=== PATIENT | male | born 1995 | race African-American/Black ===

== ENCOUNTER 2022-08-15 14:51 | Observation (INO) | payer BC, SELFPAY ==
--- NOTE | ~2022-08-15 | US_ITS ---
EXAMINATION: US renal BI DATE: 08/16/2022 11:55 INDICATION: Acute renal failure TECHNIQUE: Multiple grayscale and Doppler ultrasound images of the kidneys were obtained. COMPARISON: None. FINDINGS: The right kidney measures 9.9 x 5.8 x 4.4 cm. The left kidney measures 10.2 x 4.9 x 4.8 cm. The kidneys demonstrate normal parenchymal echogenicity. There is no hydronephrosis. The bladder is normal. IMPRESSION: 1. Normal kidneys without hydronephrosis. Reviewed, dictated and finalized at location [facility]PRENTICE
[2022-08-15 15:16] VITALS: BP 153/80; PULSE 107; RESP 20; TEMP 36.2; O2SAT 99
[2022-08-15 15:27] LABS: Glucose Point of Care > 500 mg/dl (65-105)
[2022-08-15 15:54] LABS: Basophils Percent Auto 0.5 % (0.2-1.2); Eosinophils Absolute Auto 0.1 K/mm3 (0-0.3); Eosinophils Percent Auto 1.7 % (0-4.4); Hematocrit 41.5 % (42.0-52.0); Hemoglobin 14.1 g/dL (14.0-18.0); Immature Granulocyte Absolute 0.11 K/mm3 (0.00-0.031); Immature Granulocyte Percent A 1.9 % (0-0.5); Lymphocytes Absolute Auto 1.63 K/mm3 (0.9-3.2); Lymphocytes Percent Auto 27.9 % (18.3-44.2); Mean Corpuscular Hemoglobin 29.1 pg (26-34); Mean Corpuscular Volume 85.7 fl (80-100); Monocytes Absolute Auto 0.8 K/mm3 (0.1-0.6); Monocytes Percent Auto 13.3 % (2.6-8.5); Neutrophils Absolute Auto 3.2 K/mm3 (1.3-6.7); Neutrophils Percent Auto 54.7 % (45.5-73.1); Platelet Count Result 166 k/mm3 (150-375); Red Blood Count 4.84 M/mm3 (4.6-6.20); Red Cell Distribution Width 12.9 % (11.5-14.5); White Blood Count 5.9 K/mm3 (4.5-10.0)
[2022-08-15 16:08] LABS: Beta-Hydroxybutyrate/Acetoacetate 0.11 mmol/L (0.02-0.27)
[2022-08-15 16:12] LABS: Appearance Urine Clear (Clear); Bilirubin Urine Negative (Negative); Blood Urine Trace-lysed (Negative); Color Urine Light Yellow (Yellow); Glucose Urine UA 3+ mg/dL (Negative); Ketones Urine Negative (Negative); Leukocyte Esterase Ur Negative LEU/UL (Negative); Nitrate Urine Negative (Negative); Protein Urine Negative (Negative); Specific Grav Ur <= 1.005 (1.001-1.035); Urobilinogen Urine 0.2 mg/dL (<2.0); pH Urine 6.5 (5.0-9.0)
[2022-08-15 16:16] LABS: Bacteria Urine Trace /hpf; RBC Urine 0-2 /hpf (0-2); WBC Urine 0-3 /hpf
[2022-08-15 16:17] LABS: Add Urine Microscopic? YES
[2022-08-15 16:22] LABS: Alanine Aminotransferase 26 U/L (6-50); Albumin Level 4.5 g/dL (3.5-5.1); Alkaline Phosphatase 159 U/L (38-126); Anion Gap 12 mmol/L (8-16); Aspartate Amino Transferase 26 U/L (17-59); Bilirubin,Total 0.5 mg/dL (0.2-1.3); Blood Urea Nitrogen 19 mg/dL (9-20); Calcium 9.3 mg/dL (8.4-10.2); Carbon Dioxide 22 mmol/L (22-30); Chloride 92 mmol/L (98-107); Estimated CRCL calculation 66 ml/min; Estimated Glomerular Filt Rate 49; Phosphorus 3.8 mg/dL (2.5-4.5); Potassium 4.5 mmol/L (3.4-5.0); Sodium 126 mmol/L (137-145)
[2022-08-15 16:39] LABS: Glucose 789 mg/dL (65-110)
[2022-08-15] MEDS: LORazepam INJ (*CRX) 2 MG/ML VIAL 0.5 MG IV PUSH (17:37)
[2022-08-15] MEDS: SODIUM CHLORIDE 0.9% IV 1,000 ML 999 ML IV CONT ×2 (17:38→19:02)
--- NOTE | 2022-08-15 17:40 | ED.GENADULT ---
HPI - General Adult General Chief complaint: Recheck/Abnormal Lab/Rx Stated complaint: high bs Time Seen by Provider: 08/15/22 16:37 History of Present Illness HPI narrative: Patient is a 27-year-old male who presents ER due to outpatient lab work that was abnormal. He was told that he had a critically elevated blood glucose as well as elevated cholesterol levels and an elevated creatinine. Patient reports he had increased thirst and water intake over the last couple months. Patient had been in a mental institution since he was 15 years old and was recently released last months. Last week his father's and this is caused him a lot of stress and anxiety. Denies fevers chills or sweats. No chest pain or chest pressure. No additional concerns. Review of Systems Review of Systems: All systems reviewed & are unremarkable except as noted in HPI and below Constitutional: Constitutional: Denies chills, Denies fatigue and Denies fever(s) ENT: Denies nasal congestion and Denies sore throat Cardiovascular: Cardiovascular: Denies chest pain and Denies rapid heart rate Respiratory: Respiratory: Denies cough, Denies dyspnea and Denies wheezing Gastrointestinal: Gastrointestinal: Denies abdominal pain, Denies nausea and Denies vomiting Endocrine: Endocrine: Denies excessive sweating, Denies fatigue, Reports polydipsia and Reports polyuria PMFSH Past Medical History Medical History (Updated 08/15/22 @ 21:47 by Vern Montano MD) ADHD Bipolar disorder Cerebral palsy Cognitive developmental delay Diabetes Intermittent explosive disorder Surgical History Surgical History (Updated 08/15/22 @ 19:08 by Breonna Jacobs NP) History of hand surgery Status post surgery of both feet [place] teeth extracted Family History Family History (Updated 08/15/22 @ 19:02 by Breonna Jacobs NP) Mother Diabetes mellitus Father Drug addiction Social History Social History (Updated 08/15/22 @ 19:04 by Breonna Jacobs NP) Social History: lives with biological aunt, mother, sister in law, and cat. Disabled code status : full code Smoking status: Never smoker Exam Narrative: GENERAL: Well-appearing, well-nourished, and in no acute distress. HEAD: Normocephalic, atraumatic. EYES: PERRL and EOMI. ENT: Mucous membranes moist. CHEST: Clear to auscultation. No respiratory distress. HEART: Regular rate and rhythm. Normal peripheral pulses. ABDOMEN: Soft, nontender, nondistended. EXTREMITIES: Normal range of motion. No edema. SKIN: Warm, dry, no rash. NEURO: Alert and oriented x3. PSYCH: Normal mood and affect. Course Course Emergency Course: Patient be admitted to hospitalist service for hyperglycemia and management of new diabetes. Patient anxiety treated with Ativan. He is nervous for being in the hospital given recent in the family. He is aware of the diagnosis and treatment plan as is his mother. He has been accepted by the hospitalist service and he will be started on a lower dose of Lantus since he is insulin na?ve. Vital Signs Vital signs: Vital Signs Temperature 97.2 F L 08/15/22 15:16 Pulse Rate 107 H 08/15/22 15:16 Respiratory Rate 08/15/22 15:16 Blood Pressure 153/80 H 08/15/22 15:16 Pulse Oximetry 99 08/15/22 15:16 Oxygen Delivery Room Air 08/15/22 15:16 Temperature 97.2 F L 08/15/22 15:16 Pulse Rate 107 H 08/15/22 15:16 Respiratory Rate 08/15/22 15:16 Blood Pressure 153/80 H 08/15/22 15:16 Pulse Oximetry 99 08/15/22 15:16 Oxygen Delivery Room Air 08/15/22 15:16 Medical Decision Making Vital Signs Vital Signs: Vital Signs Temperature 97.2 F L 08/15/22 15:16 Pulse Rate 107 H 08/15/22 15:16 Respiratory Rate 08/15/22 15:16 Blood Pressure 153/80 H 08/15/22 15:16 Pulse Oximetry 99 08/15/22 15:16 Oxygen Delivery Room Air 08/15/22 15:16 Temperature 97.2 F L 08/15/22 15:16 Pulse Rate 107 H 08/15/22 15:16 Respir
[2022-08-15 17:50] LABS: Glucose Point of Care > 500 mg/dl (65-105)
[2022-08-15 18:53] LABS: Glucose Point of Care > 500 mg/dl (65-105)
--- NOTE | 2022-08-15 18:55 | PM.IMHP ---
H&P: HPI History of Present Illness Date/Time: 08/15/22 18:55 Chief Complaint: Abnormal labs Narrative: This is a 27-year-old male patient who recently was discharged from a mental institution. The patient had been there for at least 12 years. The patient was told that he has a critically elevated blood glucose and elevated cholesterol levels and elevated creatinine. The patient is very dry his lips are dry and he is requesting water. The patient had increased thirst and water intake or last couple months. Last week his uncle who raised him any called dad recently and the patient has been having a lot of stress and anxiety. He denies any fever chills. His sodium is 126, chloride 92 creatinine 1.7. His initial blood glucose was 789 and is now 141. The patient was given Ativan, 2 L of IV fluid, Lantus, NovoLog and regular insulin in the emergency room. He was negative for influenza A/B and COVID. The patient is being admitted to observation status on the date of service of 08/15/2022 Review of Systems Review of Systems: See HPI All systems reviewed & are unremarkable except as noted in HPI and below Constitutional: Constitutional: Reports as per HPI and Reports no additional constitutional complaints Eyes: Eyes: Reports as per HPI and Reports no additional eye complaints ENT: Reports system reviewed and no additional complaints, except as documented and Reports Normal hearing present Cardiovascular: Cardiovascular: Reports no additional cardiovascular complaints Respiratory: Respiratory: Reports no additional respiratory complaints and Reports no additional respiratory complaints Gastrointestinal: Gastrointestinal: Reports as per HPI and Reports no additional gastrointestinal complaints Musculoskeletal: Musculoskeletal: Reports no additional musculoskeletal complaints Integumentary/Breasts: Skin/Breast: Reports system reviewed and no additional complaints, except as docu and Reports as per HPI Neurologic: Reports system reviewed and no additional complaints, except as documented, Reports as per HPI and Reports Normal hearing present Psychiatric: Psychiatric: Reports no additional psychiatric complaints and Reports as per HPI Endocrine: Endocrine: Reports no additional endocrine complaints Hematologic/Lymphatic: Hematologic/Lymphatic: Reports no additional hematologic/lymphatic complaints Allergic/Immunologic: Allergic/Immunologic: Reports no additional allergic/immunologic complaints [facility] Past Medical History Medical History (Updated 08/16/22 @ 01:10 by Breonna Jacobs NP) ADHD Bipolar disorder Cerebral palsy Cognitive developmental delay Diabetes Hypertension Intermittent explosive disorder Surgical History Surgical History History of hand surgery Status post surgery of both feet [place] teeth extracted Family History Family History Mother Diabetes mellitus Father Drug addiction Social History Social History (Updated 08/16/22 @ 01:00 by Breonna Jacobs NP) Social History: He lives with biological aunt, biologic mother, sister in law, and a [place] cat. He is Disabled. He is single and has no children. code status : full code Smoking status: Never smoker Alcohol intake: never Substance use: never Substance use type: does not use Lack of Transportation: No Lack of Food: Never True Current Housing: I Have Housing Concerned About Future Housing: No Difficulty Paying Gas/Electric Bills: No Difficulty Paying for Meds: No Currently Unemployed: No Education: High School Diploma/GED Difficulty w/ Childcare or Family Care: No Spiritual care concerns: No Meds Home Medications and Allergies Home Medications Medication Instructions Recorded Confirmed Type benztropine 1 mg tablet 1 mg PO BID 08/15/22 08/15/22 History chlorpromazine 100 mg ta
[2022-08-15] MEDS: INSULIN GLARGINE (*BKC) 100 UNITS/ML 10 UNITS SUB-Q (19:00)
[2022-08-15] MEDS: INSULIN HUMAN REGULAR (*BKC) 100 UNITS/ML 10 UNITS SUB-Q (19:00)
[2022-08-15 19:04] LABS: Influenza A QL RT-PCR Negative (Negative); Influenza B QL RT-PCR Negative (Negative); SARS-CoV-2 RNA PCR Negative
[2022-08-15 20:03] LABS: Glucose Point of Care 469 mg/dl (65-105)
[2022-08-15 22:09] LABS: Glucose Point of Care 359 mg/dl (65-105)
[2022-08-15] MEDS: INSULIN HUMAN REGULAR (*BKC) 100 UNITS/ML IV PUSH (22:10)
[2022-08-15 22:30] VITALS: PULSE 78
--- NOTE | 2022-08-15 22:30 | ADMGEN ---
This patient, Dov Ludwig, was admitted to IMU Room 210-01. Patient/family oriented to hospital policies and general routines including ID bracelet, bed and alarms, visiting hours, pain management, procedures, bathroom and other care routines, personal items, smoking policy, room service/diet, and visiting hours. Information on how to activate the Rapid Response Team has been discussed. Patient/Family are encouraged to report perceived risks to care and to ask questions if they do not understand what they are told or what they should do.
[2022-08-15 22:56] VITALS: BP 132/87; PULSE 81; RESP 20; TEMP 36.4; O2SAT 99
[2022-08-15 23:43] LABS: Glucose Point of Care 141 mg/dl (65-105)
[2022-08-16] VITALS (18 sets, daily range): BP systolic 118–138; BP diastolic 63–86; PULSE 59–93; RESP 18–20; TEMP 35.7–36.7; O2SAT 99–100; BMI 29.7
[2022-08-16] MEDS: DIVALPROEX SODIUM ER 500 MG TAB.24H 2500 MG PO ×2 (02:00→20:54)
[2022-08-16] MEDS: DESMOPRESSIN ACETATE 0.1 MG TABLET 0.6 MG PO ×2 (02:01→20:53)
[2022-08-16] MEDS: hydrOXYzine HCL 25 MG TABLET PO ×4 (02:02→16:32)
[2022-08-16] MEDS: GABAPENTIN 100 MG CAPSULE PO ×4 (02:03→16:32)
[2022-08-16] MEDS: levETIRAcetam 500 MG TABLET 1000 MG PO ×4 (02:03→16:28)
[2022-08-16] MEDS: FAMOTIDINE 20 MG TABLET PO ×2 (02:03→20:53)
[2022-08-16] MEDS: BENZTROPINE MESYLATE 1 MG TABLET PO ×3 (02:04→16:33)
[2022-08-16] MEDS: chlorproMAZINE HCL 25 MG TABLET 100 MG PO ×4 (02:04→16:29)
[2022-08-16] MEDS: CITALOPRAM HYDROBROMIDE 20 MG TABLET PO ×3 (02:04→16:31)
[2022-08-16] MEDS: traZODone HCL 50 MG TABLET PO ×2 (02:06→20:53)
[2022-08-16 05:25] LABS: Basophils Percent Auto 0.5 % (0.2-1.2); Eosinophils Absolute Auto 0.1 K/mm3 (0-0.3); Eosinophils Percent Auto 2.1 % (0-4.4); Hematocrit 39.3 % (42.0-52.0); Hemoglobin 13.5 g/dL (14.0-18.0); Immature Granulocyte Absolute 0.14 K/mm3 (0.00-0.031); Immature Granulocyte Percent A 2.1 % (0-0.5); Lymphocytes Absolute Auto 2.22 K/mm3 (0.9-3.2); Lymphocytes Percent Auto 33.6 % (18.3-44.2); Mean Corpuscular HGB Conc 34.4 g/dl (32-36); Mean Corpuscular Hemoglobin 29.2 pg (26-34); Mean Corpuscular Volume 84.9 fl (80-100); Mean Platelet Volume 10.8 fl (7.4-10.4); Monocytes Absolute Auto 1.1 K/mm3 (0.1-0.6); Monocytes Percent Auto 16.1 % (2.6-8.5); Neutrophils Percent Auto 45.6 % (45.5-73.1); Platelet Count Result 169 k/mm3 (150-375); Red Blood Count 4.63 M/mm3 (4.6-6.20); Red Cell Distribution Width 13.1 % (11.5-14.5); White Blood Count 6.6 K/mm3 (4.5-10.0)
[2022-08-16 05:40] LABS: Anion Gap 8 mmol/L (8-16); Blood Urea Nitrogen 18 mg/dL (9-20); Calcium 9.1 mg/dL (8.4-10.2); Carbon Dioxide 27 mmol/L (22-30); Chloride 104 mmol/L (98-107); Estimated CRCL calculation 80 ml/min; Estimated Glomerular Filt Rate > 60; Glucose 204 mg/dL (65-110); Potassium 3.6 mmol/L (3.4-5.0); Sodium 139 mmol/L (137-145)
[2022-08-16] MEDS: INSULIN ASPART (*BKC) 100 UNITS/ML SUB-Q ×4 (06:10→23:55)
[2022-08-16 07:27] LABS: Hemoglobin A1C 12.9 % (<5.7)
[2022-08-16] MEDS: polyethylene glycoL 3350 17 GM POWD.PACK PO (09:03)
[2022-08-16] MEDS: cloNIDine HCL 0.2 MG TABLET PO ×2 (09:04→16:30)
[2022-08-16] MEDS: ENOXAPARIN 40 MG/0.4 ML SYRINGE SUB-Q (09:04)
[2022-08-16] MEDS: metFORMIN HCL XR 500 MG TAB.SR.24H PO (10:20)
[2022-08-16] MEDS: glipiZIDE 5 MG TABLET PO (10:20)
[2022-08-16 12:16] LABS: Glucose Point of Care 257 mg/dl (65-105)
--- NOTE | 2022-08-16 14:48 | PM.IMPN ---
Progress Note: A&P Assessment and Plan (1) Hyperglycemia due to type 2 diabetes mellitus: Code(s): E11.65 - Type 2 diabetes mellitus with hyperglycemia Status: Acute Assessment and Plan: -check A1c -the patient was given a dose of regular insulin in the emergency room grassroots organizer -dietitian I was not able to start him on metformin today due to his acute renal failure. 08/16/2022 interval history: patient with mental illness was in the [facility] 12 years just returned home and found to have new onset DM most likely type II, his A1c is 12.9, upon arrival patient was hyperglycemic but not in DKA, his LELE most likely due to dehydration as patient kidney function is improving, will hydration, I have started patient on metformin and Glucotrol, patient with history of mental illness not a candidate for insulin, will have frog shaker and nailer machine consult the patient, patient mother and whole family has DM II, will continue to monitor. (2) Creatinine elevation: Code(s): R79.89 - Other specified abnormal findings of blood chemistry Status: Acute Assessment and Plan: We will recheck his creatinine in the a.m.. May consider starting metformin if his creatinine comes down to normal. Renal ultrasound (3) Bipolar disorder: Code(s): F31.9 - Bipolar disorder, unspecified Status: Acute Assessment and Plan: Continue with Celexa (4) Cerebral palsy: Code(s): G80.9 - Cerebral palsy, unspecified Status: Acute Assessment and Plan: The patient has some mental development delay legs. (5) Cognitive developmental delay: Code(s): F81.9 - Developmental disorder of scholastic skills, unspecified Status: Acute Assessment and Plan: The patient had been in a mental in-situ it for approximately 12 years. (6) Intermittent explosive disorder: Code(s): F63.81 - Intermittent explosive disorder Status: Acute Assessment and Plan: Continue with Cogentin, chlorpromazine, Celexa, divalproex sodium, and trazodone. (7) Hypertension: Code(s): I10 - Essential (primary) hypertension Status: Acute Assessment and Plan: Continue with Catapres Subjective Date/time seen: 08/16/22 14:48 Abnormal labs HPI-Narrative: This is a 27-year-old male patient who recently was discharged from a mental institution.? The patient had been there for at least 12 years.? The patient was told that he has a critically elevated blood glucose and elevated cholesterol levels and elevated creatinine.? The patient is very dry his lips are dry and he is requesting water.? The patient had increased thirst and water intake or last couple months.? Last week his uncle who raised him any called dad recently and the patient has been having a lot of stress and anxiety.? He denies any fever chills.? His sodium is 126, chloride 92 creatinine 1.7.? His initial blood glucose was 789 and is now 141.? The patient was given Ativan, 2 L of IV fluid, Lantus, NovoLog and regular insulin in the emergency room.? He was negative for influenza A/B and COVID.? The patient is being admitted to observation status on the date of service of 08/15/2022 08/16/2022 interval history: patient with mental illness was in [facility] years just returned home and found to have new onset DM most likely type II, his A1c is 12.9, upon arrival patient was hyperglycemic but not in DKA, his LELE most likely due to dehydration as patient kidney function is improving, will hydration, I have started patient on metformin and Glucotrol, patient with history of mental illness not a candidate for insulin, will have frog shaker and nailer machine consult the patient, patient mother and whole family has DM II, will continue to monitor. Review of Systems Review of Systems: All systems reviewed & are unremarkable except as noted in HPI and below Objective Data Vital Signs
[2022-08-16 16:35] LABS: Glucose Point of Care 249 mg/dl (65-105)
--- NOTE | 2022-08-16 17:18 | PC.NURSE ---
1600 agree with assessments and documentation of student nurse Hoda Richards from [facility]
[2022-08-16 23:30] LABS: Glucose Point of Care 290 mg/dl (65-105)
[2022-08-17] VITALS (10 sets, daily range): BP systolic 118–139; BP diastolic 63–87; PULSE 63–87; RESP 16–20; TEMP 36.5–36.6; O2SAT 99–100
[2022-08-17 05:04] LABS: Hematocrit 40.8 % (42.0-52.0); Hemoglobin 13.9 g/dL (14.0-18.0); Mean Corpuscular HGB Conc 34.1 g/dl (32-36); Mean Corpuscular Hemoglobin 29.3 pg (26-34); Mean Corpuscular Volume 85.9 fl (80-100); Mean Platelet Volume 11.1 fl (7.4-10.4); Platelet Count Result 168 k/mm3 (150-375); Red Blood Count 4.75 M/mm3 (4.6-6.20); Red Cell Distribution Width 13.1 % (11.5-14.5); White Blood Count 5.9 K/mm3 (4.5-10.0)
[2022-08-17 05:17] LABS: Albumin Level 4.1 g/dL (3.5-5.1); Anion Gap 3 mmol/L (8-16); Blood Urea Nitrogen 13 mg/dL (9-20); Calcium 9.5 mg/dL (8.4-10.2); Carbon Dioxide 31 mmol/L (22-30); Chloride 104 mmol/L (98-107); Estimated CRCL calculation 80 ml/min; Estimated Glomerular Filt Rate > 60; Glucose 172 mg/dL (65-110); Magnesium 1.8 mg/dL (1.6-2.3); Phosphorus 3.3 mg/dL (2.5-4.5); Potassium 3.8 mmol/L (3.4-5.0); Sodium 138 mmol/L (137-145)
[2022-08-17] MEDS: glipiZIDE 5 MG TABLET PO (06:17)
[2022-08-17] MEDS: chlorproMAZINE HCL 25 MG TABLET 100 MG PO (08:10)
[2022-08-17] MEDS: metFORMIN HCL XR 500 MG TAB.SR.24H PO (08:10)
[2022-08-17] MEDS: levETIRAcetam 500 MG TABLET 1000 MG PO (08:11)
[2022-08-17] MEDS: GABAPENTIN 100 MG CAPSULE PO (08:11)
[2022-08-17] MEDS: CITALOPRAM HYDROBROMIDE 20 MG TABLET PO (08:11)
[2022-08-17] MEDS: cloNIDine HCL 0.2 MG TABLET PO (08:11)
[2022-08-17] MEDS: hydrOXYzine HCL 25 MG TABLET PO (08:12)
[2022-08-17] MEDS: ENOXAPARIN 40 MG/0.4 ML SYRINGE SUB-Q (08:13)
[2022-08-17] MEDS: polyethylene glycoL 3350 17 GM POWD.PACK PO (08:13)
[2022-08-17] MEDS: BENZTROPINE MESYLATE 1 MG TABLET PO (08:14)
--- NOTE | 2022-08-17 12:17 | PM.DS ---
DS: Admitting Diagnosis Discharge Date 08/17/2022 Admitting Diagnosis Abnormal labs DS: Discharge Diagnosis Discharge Diagnosis (1) Hyperglycemia due to type 2 diabetes mellitus: Code(s): E11.65 - Type 2 diabetes mellitus with hyperglycemia Status: Acute Assessment and Plan: -check A1c -the patient was given a dose of regular insulin in the emergency room senior health educator -dietitian I was not able to start him on metformin today due to his acute renal failure. 08/16/2022 interval history: patient with mental illness was in the hospital for behavioral medicine for 12 years just returned home and found to have new onset DM most likely type II, his A1c is 12.9, upon arrival patient was hyperglycemic but not in DKA, his LELE most likely due to dehydration as patient kidney function is improving, will hydration, I have started patient on metformin and Glucotrol, patient with history of mental illness not a candidate for insulin, will have hand roller engraver and tobacco prevention health educator consult the patient, patient mother and whole family has DM II, will continue to monitor. (2) Creatinine elevation: Code(s): R79.89 - Other specified abnormal findings of blood chemistry Status: Acute Assessment and Plan: We will recheck his creatinine in the a.m.. May consider starting metformin if his creatinine comes down to normal. Renal ultrasound (3) Bipolar disorder: Code(s): F31.9 - Bipolar disorder, unspecified Status: Acute Assessment and Plan: Continue with Celexa (4) Cerebral palsy: Code(s): G80.9 - Cerebral palsy, unspecified Status: Acute Assessment and Plan: The patient has some mental development delay legs. (5) Cognitive developmental delay: Code(s): F81.9 - Developmental disorder of scholastic skills, unspecified Status: Acute Assessment and Plan: The patient had been in a mental in-situ it for approximately 12 years. (6) Intermittent explosive disorder: Code(s): F63.81 - Intermittent explosive disorder Status: Acute Assessment and Plan: Continue with Cogentin, chlorpromazine, Celexa, divalproex sodium, and trazodone. (7) Hypertension: Code(s): I10 - Essential (primary) hypertension Status: Acute Assessment and Plan: Continue with Catapres DS: Summary Hospital Course Reason for hospitalization: Abnormal labs Narrative: This is a 27-year-old male patient who recently was discharged from a mental institution.? The patient had been there for at least 12 years.? The patient was told that he has a critically elevated blood glucose and elevated cholesterol levels and elevated creatinine.? The patient is very dry his lips are dry and he is requesting water.? The patient had increased thirst and water intake or last couple months.? Last week his uncle who raised him any called dad recently and the patient has been having a lot of stress and anxiety.? He denies any fever chills.? His sodium is 126, chloride 92 creatinine 1.7.? His initial blood glucose was 789 and is now 141.? The patient was given Ativan, 2 L of IV fluid, Lantus, NovoLog and regular insulin in the emergency room.? He was negative for influenza A/B and COVID. Hospital Course: patient with mental illness was in the hospital for behavioral medicine for 12 years just returned home and found to have new onset DM most likely type II, his A1c is 12.9, upon arrival patient was hyperglycemic but not in DKA, his LELE most likely due to dehydration as patient kidney function is improving, will hydration, I have started patient on metformin and Glucotrol, patient with history of mental illness not a candidate for insulin, will have hand roller engraver and tobacco prevention health educator consult the patient, patient mother and whole family has DM II, will continue to monitor. patient remains clinically stable the blood sugars are improved will discharge the patient with his mother Time Spent with Patient Time atte
== END 2022-08-17 13:29 | disposition home or self-care (01) ==
LOC: ANHED 21:47 → ANHIMU 21:55
PROVIDERS: Emergency Medicine; Nurse Practitioner; Admitting Provider Family Medicine; Emergency Provider Emergency Medicine; Visit Provider Family Medicine
DX: E11.65 Type 2 diabetes mellitus with hyperglycemia (principal); R79.89 Other specified abnormal findings of blood chemistry; F31.9 Bipolar disorder, unspecified; E78.00 Pure hypercholesterolemia, unspecified; R63.1 Polydipsia; G80.9 Cerebral palsy, unspecified; F88 Other disorders of psychological development; F81.9 Developmental disorder of scholastic skills, unspecified; F63.81 Intermittent explosive disorder; Z20.822 Contact with and (suspected) exposure to COVID-19; Z73.3 Stress, not elsewhere classified; F41.9 Anxiety disorder, unspecified; F90.9 Attention-deficit hyperactivity disorder, unspecified type; Z83.3 Family history of diabetes mellitus; Z79.899 Other long term (current) drug therapy; E66.9 Obesity, unspecified; Z68.29 Body mass index [BMI] 29.0-29.9, adult
CPT/HCPCS: 36415; 76775; 80048; 80053; 80069; 81001; 82010; 82948; 83036; 83735; 84100; 85025; 85027; 87636; 96361; 96372; 96374; 96375; 99285; A9270; G0378; J1650; J1815; J2060; J7030

== ENCOUNTER 2022-10-06 14:00 | Outpatient (CLI) | payer OTHER, SELFPAY ==
[2022-10-06 17:42] LABS: Creatinine Urine 308.8 mg/dL
[2022-10-06 17:49] LABS: MALB Creatinine Ratio < 1.9 mg/g (0-30); Microalbumin Urine Random < 6.0 mg/L (0-16.7)
[2022-10-06 18:35] LABS: Alanine Aminotransferase 19 U/L (6-50); Albumin Level 4.5 g/dL (3.5-5.1); Alkaline Phosphatase 90 U/L (38-126); Anion Gap 13 mmol/L (8-16); Aspartate Amino Transferase 44 U/L (17-59); Bilirubin,Total 0.4 mg/dL (0.2-1.3); Blood Urea Nitrogen 23 mg/dL (9-20); Calcium 9.9 mg/dL (8.4-10.2); Carbon Dioxide 25 mmol/L (22-30); Chloride 101 mmol/L (98-107); Estimated Glomerular Filt Rate 53; Glucose 80 mg/dL (65-110); Potassium 4.2 mmol/L (3.4-5.0); Sodium 139 mmol/L (137-145)
[2022-10-09 19:54] LABS: Glutamic acid decarboxylase AA <5 IU/mL (<5)
[2022-10-10 14:31] LABS: C-Peptide 3.76 ng/mL (0.80-3.85)
== END 2022-10-06 14:01 | disposition home or self-care (01) ==
LOC: ANHWCLAB 14:01
PROVIDERS: Visit Provider Internal Medicine
DX: E11.65 Type 2 diabetes mellitus with hyperglycemia (principal); I10 Essential (primary) hypertension
CPT/HCPCS: 36415; 80053; 82043; 82607; 84681; 86341

== ENCOUNTER 2022-11-22 12:00 | Outpatient (RCR) | payer OTHER, SELFPAY ==
[2022-10-20 11:57] VITALS: BMI 30.7
[2022-11-22 12:00] VITALS: BMI 31.6
[2022-11-22 12:03] VITALS: BMI 31.6
== END 2023-01-09 12:37 | disposition home or self-care (01) ==
LOC: ANHDMC 12:00
PROVIDERS: Visit Provider Internal Medicine
DX: E11.65 Type 2 diabetes mellitus with hyperglycemia (principal); Z71.3 Dietary counseling and surveillance; Z71.89 Other specified counseling
CPT/HCPCS: 97802; 97803; G0108